=== PATIENT | male | born 2000 | race Caucasian/White ===

== ENCOUNTER 2020-07-17 08:45 | Emergency (ER) | payer OTHER ==
[~2020-07-17] VITALS: Ht 170.2 cm; Wt 70.8 kg
[2020-07-17 08:49] VITALS: Ht 170.2 cm; Wt 70.8 kg
[2020-07-17 10:40] VITALS: BP 124/75
== END 2020-07-17 10:40 | disposition home or self-care (01) ==
LOC: ED 08:45
DX: M25.571 Pain in right ankle and joints of right foot (principal); M79.671 Pain in right foot; Z98.890 Other specified postprocedural states
CPT/HCPCS: Q0092